=== PATIENT | male | born 1985 | race Caucasian/White ===

== ENCOUNTER 2025-01-27 17:10 | Emergency (ER) | payer BC ==
[~2025-01-27] VITALS: Ht 167.6 cm; Wt 79.8 kg
[2025-01-27] MEDS ORDERED: HYDR-3980 PO (18:37)
[2025-01-27 18:49] VITALS: BP 121/66; O2SAT 99
== END 2025-01-27 18:49 | disposition home or self-care (01) ==
LOC: ER 17:10
DX: S60.221A Contusion of right hand, initial encounter (principal); R21 Rash and other nonspecific skin eruption; X58.XXXA Exposure to other specified factors, initial encounter; Y93.89 Activity, other specified; Y92.89 Other specified places as the place of occurrence of the external cause; Y99.8 Other external cause status
CPT/HCPCS: 73130; A4606; A4663

== ENCOUNTER 2025-04-27 04:11 | Emergency (ER) | payer BC ==
[~2025-04-27] VITALS: Ht 175.3 cm; Wt 81.6 kg
[~2025-04-27 04:11] MED LIST: HYDR-3980 PO
[2025-04-27] MEDS ORDERED: ONDANSETRON ODT 4 MG TAB.RAPDIS ONE (05:37)
[2025-04-27] MEDS ORDERED: MORPHINE SULFATE 2 MG/1 ML DISP.SYRIN ONE (05:38)
[2025-04-27] MEDS: ONDANSETRON ODT 4 MG TAB.RAPDIS SL ONE (05:43)
[2025-04-27] MEDS: MORPHINE SULFATE 2 MG/1 ML DISP.SYRIN IM ONE (05:43)
[2025-04-27] MEDS ORDERED: KETO10TA2 PO (06:05)
[2025-04-27 07:00] VITALS: BP 122/84; TEMP 98; O2SAT 98
== END 2025-04-27 07:00 | disposition home or self-care (01) ==
LOC: ER 04:21
DX: S52.571A Other intraarticular fracture of lower end of right radius, initial encounter for closed fracture (principal); S52.611A Displaced fracture of right ulna styloid process, initial encounter for closed fracture; W01.0XXA Fall on same level from slipping, tripping and stumbling without subsequent striking against object, initial encounter; Y93.89 Activity, other specified; Y92.89 Other specified places as the place of occurrence of the external cause; Y99.8 Other external cause status
CPT/HCPCS: 29125; 73110; 96372; 99283; J2270; A4606; A4663; Q0162